=== PATIENT | female | born 1950 | race African-American/Black ===

== ENCOUNTER 2017-06-03 16:22 | Emergency (ER) | payer OTHER ==
[2017-06-03 16:47] VITALS: BP 136/89; PULSE 102; TEMP 98.7; BMI 32.2
--- NOTE | 2017-06-03 19:54 | PDOC ---
History of Present Illness - General Chief Complaint: Pain Stated Complaint: PAIN Time Seen by Provider: 06/03/17 19:44 History Source: Patient Exam Limitations: No Limitations - History of Present Illness Travel History: No Initial Comments: 06/03/17 19:51 67-year-old female with a history of hypertension presents to the emergency department complaining of urinary frequency/urgency/hesitancy without hematuria. Patient denies any fever, chills, n/v, cp, sob, abd pain, flank pain. Pt states she's been drinking cranberry juice all day with min relief. Timing/Duration: reports: intermittent Past History - Past Medical History Allergies/Adverse Reactions: Allergies Allergy/AdvReac Type Severity Reaction Status Date / Time tramadol Allergy Intermediate TREMORS Verified 09/16/15 01:24 ciprofloxacin [From Cipro] Allergy Mild V/D Verified 09/16/15 01:24 ciprofloxacin HCl Allergy Mild V/D Verified 09/16/15 01:24 [From Cipro] cefazolin sodium [From Ancef] Allergy Verified 06/03/17 16:35 codeine Allergy Verified 09/16/15 01:24 cyclobenzaprine HCl Allergy Verified 09/16/15 01:24 [From Flexeril] ibuprofen [From Advil] Allergy Verified 09/16/15 01:24 Iodinated Contrast- Oral and Allergy Verified 09/16/15 01:24 IV Dye [IV Dye, Iodine Containing Contrast ] moxifloxacin HCl Allergy Verified 09/16/15 01:24 [From Avelox] NSAIDS (Non-Steroidal Allergy Verified 09/16/15 01:24 Anti-Inflamma shellfish derived Allergy Verified 09/16/15 01:24 aspirin AdvReac Nausea Verified 09/16/15 01:24 Home Medications: Ambulatory Orders Amlodipine Besylate [Norvasc -] 10 mg PO DAILY 09/15/14 Nitrofurantoin Monohyd/M-Cryst [Macrobid -] 100 mg PO BID #14 capsule 06/03/17 Nitrofurantoin Monohyd/M-Cryst [Macrobid -] 100 mg PO BID #14 capsule 06/03/17 Cancer: Yes (H/O bilateral BREAST ca) COPD: No HTN: Yes - Surgical History Neurologic Surgery: Yes (cervical fusion / lumbar fusion) - Immunization History Immunization Up to Date: Yes - Suicide/Smoking/Psychosocial Hx Smoking Status: No Smoking History: Never smoked Have you smoked in the past 12 months: No Number of Cigarettes Smoked Daily: 0 Information on smoking cessation initiated: No Hx Alcohol Use: No Drug/Substance Use Hx: No Substance Use Type: None Hx Substance Use Treatment: No Abd/GI Specific PMHX - Complaint Specific PMHX Colitis: No Diverticulitis: No Gall Bladder Disease: No GERD: No Hepatitis: No Irritable Bowel Synd (IBS): No Pancreatitis: No GI Ulcer Disease: No Review of Systems - Review of Systems Able to Perform ROS?: Yes Comments:: 06/03/17 19:50 CONSTITUTIONAL: Absent: fever, chills, diaphoresis, generalized weakness, malaise, loss of appetite HEENT: Absent: rhinorrhea, nasal congestion, throat pain, throat swelling, difficulty swallowing, mouth swelling, ear pain, eye pain, visual Changes CARDIOVASCULAR: Absent: chest pain, loss of consciousness, palpitations, irregular heart rate, peripheral edema RESPIRATORY: Absent: cough, shortness of breath, dyspnea with exertion, orthopnea, wheezing, stridor, hemoptysis GASTROINTESTINAL: Absent: abdominal pain, abdominal distension, nausea, vomiting, diarrhea, constipation, melena, hematochezia GENITOURINARY: +dysuria, frequency, urgency, hesitancy Absent: hematuria, flank pain, genital pain SKIN: Absent: rash, itching, pallor Is the patient limited Russian proficient: No *Physical Exam - Vital Signs Last Vital Signs Temp Pulse Resp BP Pulse Ox 98.7 F 102 H 16 136/89 99 06/03/17 16:36 06/03/17 16:36 06/03/17 16:36 06/03/17 16:36 06/03/17 16:36 - Physical Exam Comments: 06/03/17 19:51 GENERAL: Well developed, well nourished. Awake and alert. No acute distress. HEENT: Normocephalic, atraumatic. PERRLA, EOMI. No conjunctival pallor. Sclera are non- icteric. Moist mucous membranes. Oropharynx is clear. NECK: Supple. Full ROM. No JVD. Carotid pulses 2+ and symmetric, without bruits. No thyromegaly. No lymphadenopathy. CARDIOVASCULAR: Regular rate and rhythm. No murmurs, rubs, or gallops. Distal pulses are 2+ and symmetric. PULMONARY: No evidence of respiratory distress. Lungs clear to auscultation bilaterally. No wheezing, rales or rhonchi. ABDOMINAL: Soft. Non-tender. Non-distended. No rebound or guarding. No organomegaly. Normoactive bowel sounds. MUSCULOSKELETAL Normal range of motion at all joints. No bony deformities or tenderness. No CVA tenderness. EXTREMITIES: No cyanosis. No clubbing. No edema. No calf tenderness. SKIN: Warm and dry. Normal capillary refill. No rashes. No jaundice. NEUROLOGICAL: Alert, awake, appropriate. Cranial nerves 2-12 intact. No deficits to light touch and temperature in face, upper extremities and lower extremities. No motor deficits in the in face, upper extremities and lower extremities. Normoreflexic in the upper and lower extremities. Normal speech. Toes are down- going bilaterally. Gait is normal without ataxia. PSYCHIATRIC: Cooperative. Good eye contact. Appropriate mood and affect. *DC/Admit/Observation/Transfer Diagnosis at time of Disposition: UTI (urinary tract infection) Qualifiers: Urinary tract infection type: acute cystitis Hematuria presence: without hematuria Qualified Code(s): N30.00 - Acute cystitis without hematuria - Discharge Dispostion Disposition: HOME Condition at time of disposition: Stable Admit: No - Prescriptions Prescriptions: Nitrofurantoin Monohyd/M-Cryst [Macrobid -] 100 mg PO BID #14 capsule Nitrofurantoin Monohyd/M-Cryst [Macrobid -] 100 mg PO BID #14 capsule - Referrals Referrals: Dale Parker [Primary Care Provider] - Gaudencio Burnette MD [Staff Physician] - - Patient Instructions Printed Discharge Instructions: DI for Urinary Tract Infection (UTI) Additional Instructions: Increase fluids Take antibiotics as prescribed Follow with the urologist as listed on your discharge form return back to the emergency department for severe/persistent or worsening symptoms As discussed your urine analysis in the emergency department does not show a urinary tract infection but your urine has been sent for culture which will return with the results in approximately 3 days. Due to your symptoms, you're being treated for urinary tract infection. - Post Discharge Activity
[2017-06-03 19:55] LABS: URINE APPEARANCE CLOUDY; URINE BILIRUBIN NEGATIVE (NEGATIVE); URINE BLOOD NEGATIVE (NEGATIVE); URINE COLOR AMBER; URINE GLUCOSE (UA) NEGATIVE (NEGATIVE); URINE KETONE NEGATIVE (NEGATIVE); URINE NITRITE NEGATIVE (NEGATIVE); URINE PROTEIN NEGATIVE (NEGATIVE); URINE UROBILINOGEN NEGATIVE mg/dL (0.2-1.0)
[2017-06-03] MEDS ORDERED: NITROFURANTOIN MACROCRYSTAL 50 MG CAPSULE (FP) PO SCH (20:45)
[2017-06-03] MEDS ORDERED: NITROFURANTOIN MACROCRYSTAL 50 MG CAPSULE (FP) ONE (20:47)
[2017-06-03 22:06] LABS: URINE LEUK ESTERASE Negative (NEGATIVE)
== END 2017-06-03 21:09 | disposition home or self-care (01) ==
LOC: JER 16:22
DX: N30.00 Acute cystitis without hematuria (principal); I10 Essential (primary) hypertension; Z85.3 Personal history of malignant neoplasm of breast
CPT/HCPCS: 81003; 87086; 99282-25